=== PATIENT | female | born 1975 | race American Indian/Alaskan Native ===

== ENCOUNTER 2018-07-01 12:42 | Outpatient (CLI) | payer BC ==
--- NOTE | 2018-07-01 14:56 | Mammography Report ---
RIGHT DIGITAL DIAGNOSTIC MAMMOGRAM: 07/01/18 12:42:00 CLINICAL: For clip placement immediately status post stereotactic biopsy for calcifications. COMPARISON:Recent [facility] mammogram. FINDINGS: A biopsy clip is now identified in the upper outer quadrant and some if not all calcifications had been removed. Lidocaine may obscure residual calcifications. IMPRESSION: Concordant clip placement status post stereotactic biopsy. BI-RADS CATEGORY: 4--Suspicious Pathology pending.
--- NOTE | 2018-07-01 15:42 | Mammography Report ---
STEREOTACTIC VACUUM ASSISTED BIOPSY WITH CLIP PLACEMENT RIGHT BREAST: 07/01/18 12:42:00 CLINICAL: Suspicious calcifications in the upper-outer quadrant COMPARISON:[facility]amaine [facility] FINDINGS: Consent for the procedure was obtained. The group of calcifications is targeted with stereotactic guidance. The skin was prepped with Betadine and anesthetized with 1% lidocaine. 2% lidocaine with epinephrine was injected for deeper anesthesia. 8 gauge Mammotome biopsy was performed from a lateral approach through a small dermatotomy. Prefire and post-fire images demonstrated satisfactory positioning of the probe. Samples were obtained around the clock face. A specimen radiograph confirmed satisfactory sampling with removal of rental sales representative calcifications. A clip was deployed at the biopsy site and satisfactory deployment was confirmed with a stereo image. The probe was removed and hemostasis was achieved with pressure to the site. A sterile dressing was applied. The patient tolerated the procedure well and there were no apparent complications. Two view mammogram demonstrated concordant placement of the biopsy clip and removal of most if not all of the calcifications. IMPRESSION: Uncomplicated stereotactic biopsy with clip placement right breast.
== END 2018-07-01 12:43 | disposition home or self-care (01) ==
LOC: SPVWC 12:42
PROVIDERS: ATTEND Surgery
DX: N60.11 Diffuse cystic mastopathy of right breast (principal); R92.1 Mammographic calcification found on diagnostic imaging of breast
CPT/HCPCS: 19081; 77065; 88305; A4648